=== PATIENT | male | born 1995 | race African-American/Black ===

== ENCOUNTER 2021-06-22 05:42 | Emergency (ER) | payer MEDICAID, OTHER ==
[~2021-06-22] VITALS: Ht 180.3 cm; Wt 64.0 kg
[2021-06-22] MEDS ORDERED: AMOX-494 MT (07:15)
[2021-06-22] MEDS ORDERED: T3 PO (07:15)
[2021-06-22] MEDS ORDERED: KETOROLAC 60MG/2ML VIAL IM ONE (07:15)
[2021-06-22 07:32] VITALS: BP 124/76
== END 2021-06-22 07:39 | disposition home or self-care (01) ==
LOC: ER 05:42
DX: R68.84 Jaw pain (principal); K08.89 Other specified disorders of teeth and supporting structures
CPT/HCPCS: 96372; 99283; J1885